=== PATIENT | female | born 1990 | race Caucasian/White ===

== ENCOUNTER 2023-02-21 12:40 | Emergency (ER) | payer BC, SELFPAY ==
[2023-02-21 13:14] VITALS: BP 108/71; PULSE 73; RESP 16; TEMP 36.7; O2SAT 98; BMI 35.3
--- NOTE | 2023-02-21 13:57 | ED.GENADULT ---
HPI - General Adult General Chief complaint: Laceration/Wound Stated complaint: L thumb lac Time Seen by Provider: 02/21/23 13:52 History of Present Illness HPI narrative: This 32-year-old female comes in with a laceration to her right thumb. She has a irregular shaped laceration over the MP joint of the right thumb which was sustained after getting cut by a broken ceramic piece in the kitchen. Her tetanus status is up-to-date and was updated 11 months ago. Related Data Home Medications Medication Instructions Recorded Confirmed No Known Home Medications 02/21/23 02/21/23 Allergies Allergy/AdvReac Type Severity Reaction Status Date / Time pollen extracts Allergy Intermediate itching Verified 02/21/23 13:13 Review of Systems Status of ROS: Reports: 10 or more systems reviewed and unremarkable except as noted in History and below Narrative: Constitutional: No fevers, no weight gain or loss. Eyes: No discharge. No vision changes. HENT: No congestion, no sore throat, no ear pain. Cardiovascular: No chest pain, no palpitations. Respiratory: No shortness of breath, no wheezes, no cough. Gastrointestinal: No abdominal pain, no vomiting, no diarrhea. Genitourinary: No dysuria, no hematuria. Musculoskeletal: Normal range of motion. Skin: No rashes, no pruritis. Neurological: No dizziness, weakness, sensory change, speech change. Endo/Heme/Allergies: No bruising or bleeding. No polydipsia. Pysch: no suicidality, no anxiety, no insomnia. All other systems reviewed and are negative. PFSH PFSH Social History Smoking Status: Never smoker How often do you have a drink containing alcohol: never AUDIT-C Alcohol total score: 0 Non-prescribed substance use: denies use Exam Narrative: Exam Narrative: Constitutional: Well-developed, well-nourished, no acute distress. HEENT: Normocephalic, atraumatic. Neck: Normal range of motion. Nontender. Supple. Heart: Regular. No murmurs. Normal rate. Intact distal pulses. Lungs: Clear to auscultation. No chest discomfort. No wheezes, rhonchi, or rales. Abdomen: Normal bowel sounds. Nontender. No rebound tenderness. Genitalia: Deferred. Back: No midline tenderness. Normal range of motion. Extremities: Normal range of motion. 3 cm curvilinear laceration over the dorsal aspect of the right thumb. Tendon and nerve function is intact. Skin: Intact. No rash. Warm. No erythema or pallor. Neurologic: No altered sensation. No weakness. Alert and oriented. Psychiatric: No suicidality. No anxiety or depression. No insomnia. Nursing notes and vitals signs are reviewed. Const: Vital Signs, click to edit/add: Vital Signs - 24 hr 02/21/23 13:14 Temperature 98.1 F Pulse Rate [Pulse Oximeter] 73 Respiratory Rate 16 Blood Pressure [Ri ght Upper Arm] 108/71 Pulse Oximetry 98 Oxygen Delivery Me thod Room Air Course Vital Signs Vital signs: Initial Vital Signs Temperature 98.1 F 02/21/23 13:14 Temperature Source Temporal Artery Scan 02/21/23 13:14 Pulse Rate 73 02/21/23 13:14 Pulse Rhythm Regular 02/21/23 13:14 Respiratory Rate 16 02/21/23 13:14 Blood Pressure 108/71 02/21/23 13:14 Blood Pressure Mean 83 02/21/23 13:14 Blood Pressure Position Sitting 02/21/23 13:14 Pulse Oximetry 98 02/21/23 13:14 Oxygen Delivery Method Room Air 02/21/23 13:14 Vital Signs Temperature 98.1 F 02/21/23 13:14 Pulse Rate 73 02/21/23 13:14 Respiratory Rate 16 02/21/23 13:14 Blood Pressure 108/71 02/21/23 13:14 Pulse Oximetry 98 02/21/23 13:14 Oxygen Delivery Method Room Air 02/21/23 13:14 Temperature 98.1 F 02/21/23 13:14 Pulse Rate 73 02/21/23 13:14 Respiratory Rate 16 02/21/23 13:14 Blood Pressure 108/71 02/21/23 13:14 Pulse Oximetry 98 02/21/23 13:14 Oxygen Delivery Method Room Air 02/21/23 13:14 Medical Decision Making MDM Narrative Medical decision making narrative: This patient has a laceration to her right thumb as described above. After anesthesia with 1% lidocaine with epinephrine the wound was explored and cleansed. Five sutures were placed in interrupted fashion using 5.0 Ethilon suture. Instructions regarding wound care were given and the need for suture removal in 7-10 days. Discharge Plan Discharge Clinical Impression: Laceration Patient Disposition: Home, Self-Care Condition: Improved Additional Instructions: Keep wound clean and dry. Follow up with MD in clinic or urgent care for suture removal in 7-10 days. Return if worsening. Prescriptions: No Action No Known Home Medications Follow Up/Referrals: Provider,Not a Local [Primary Care Provider] - Stand Alone Forms: [employer] Info Instructions
== END 2023-02-21 14:25 | disposition home or self-care (01) ==
PROVIDERS: Emergency Provider Emergency Medicine Emergency Medical Services
DX: S61.011A Laceration without foreign body of right thumb without damage to nail, initial encounter (principal); W26.8XXA Contact with other sharp object(s), not elsewhere classified, initial encounter
CPT/HCPCS: 12002; 99283; 99284